=== PATIENT | female | born 1975 | race Hispanic/Latino ===

== ENCOUNTER 2024-11-30 18:30 | Emergency (ER) | payer OTHER ==
[~2024-11-30] VITALS: Ht 152.4 cm; Wt 95.3 kg
[2024-11-30 22:49] VITALS: BP 132/74; PULSE 79; RESP 18
[2024-11-30] MEDS ORDERED: CYCLOBENZAPRINE5 MG PO (22:50)
[2024-11-30] MEDS ORDERED: NAPROSYN500 MG PO (22:50)
[2024-11-30] MEDS: CYCLOBENZAPRINE HCL 10 MG TAB PO ONE (23:05)
[2024-11-30] MEDS: NAPROXEN 250 MG TAB PO ONE (23:05)
[2024-11-30 23:36] VITALS: PULSE 81; RESP 16; TEMP 98.5; O2SAT 100
== END 2024-11-30 23:36 | disposition home or self-care (01) ==
LOC: ER 21:16
DX: S39.012A Strain of muscle, fascia and tendon of lower back, initial encounter (principal); S29.012A Strain of muscle and tendon of back wall of thorax, initial encounter; R07.89 Other chest pain; Y04.0XXA Assault by unarmed brawl or fight, initial encounter; Y92.89 Other specified places as the place of occurrence of the external cause
CPT/HCPCS: 71046; 72070; 72100; 81025; 99284